=== PATIENT | male | born 1955 | race Caucasian/White ===

== ENCOUNTER 2024-02-12 09:27 | Emergency (ER) | payer OTHER ==
[~2024-02-12] VITALS: Ht 172.7 cm; Wt 91.0 kg
[2024-02-12 09:53] VITALS: O2SAT 99
[2024-02-12 10:48] LABS: CHLORIDE 118 mEq/L (98-107); POTASSIUM 3.3 mEq/L (3.5-5.1); SODIUM 144 mEq/L (136-145)
[2024-02-12 10:49] LABS: CALCIUM 6.6 mg/dL (8.7-10.4); CARBON DIOXIDE 21 mEq/L (21-32)
[2024-02-12 10:50] LABS: D-DIMER 3.08 mg/L FEU (<0.50); PROTHROMBIN TIME 11.3 sec (9.6-11.0)
[2024-02-12 10:54] LABS: CREATININE 0.5 mg/dL (0.6-1.3); GLUCOSE 76 mg/dL (70-105); UREA NITROGEN BLOOD 12 mg/dL (9-23)
[2024-02-12 10:55] LABS: TROPONIN I HIGH SENSITIVITY 8 ng/L (3.0-53)
[2024-02-12 10:57] LABS: BASOPHILS % 0.1 % (0.0-2.0); DIFFERENTIAL COMMENT 0; HEMOGLOBIN. 9.8 g/dL (14.0-18.0); LYMPHOCYTES % 9.1 % (20.0-50.0); MEAN CORPUSCULAR HEMOGLOBIN 26.3 pg (28.0-32.0); MEAN CORPUSCULAR HGB CONC 29.9 g/dL (31.0-37.0); MEAN CORPUSCULAR VOLUME 88.2 fL (80.0-94.0); MEAN PLATELET VOLUME 8.1 fl (7.4-10.4); MONOCYTES % 8.6 % (2.0-8.0); NEUTROPHILS % 82.2 % (40.0-76.0); PLATELET 230 x1000/uL (130-400); RED BLOOD CELL COUNT 3.73 mill/uL (4.7-6.1); RED CELL DISTRIBUTION WIDTH 18.1 % (11.6-14.6); WHITE BLOOD COUNT 19.4 x1000/uL (4.5-11.0)
[2024-02-12] MEDS ORDERED: VANCOMYCIN 1G PREMIX 200 ML IV ONE (11:30)
[2024-02-12] MEDS: PIPERACILLIN/TAZO 3.375G/50ML 50 ML IV ONE (12:49)
[2024-02-12] MEDS: SODIUM CHLORIDE 0.9% 1000ML BAG (SEPSIS BOLUS) IV ONE (12:50)
[2024-02-12 12:55] VITALS: TEMP 36.72516
[2024-02-12 13:19] LABS: LACTIC ACID 2.3 mmol/L (0.4-2.0)
[2024-02-12] MEDS: VANCOMYCIN 1GM PMX (XELLIA) 200 ML IV SCH (14:02)
[2024-02-12 14:46] LABS: CLARITY URINE CLEAR (CLEAR); COLOR URINE YELLOW (YELLOW); GLUCOSE URINE NEGATIVE (NEGATIVE); KETONES URINE NEGATIVE (NEGATIVE); PROTEIN URINE NEGATIVE (NEGATIVE); SPECIFIC GRAVITY URINE 1.015 (1.005-1.030)
[2024-02-12 14:47] LABS: LEUKOCYTE ESTERASE URINE NEGATIVE (NEGATIVE); NITRITE URINE NEGATIVE (NEGATIVE); OCCULT BLOOD URINE NEGATIVE (NEGATIVE); UROBILINOGEN URINE 0.2 E.U./dL (0.2-1.0)
[2024-02-12 16:07] VITALS: BP 126/67; PULSE 98; RESP 22; O2SAT 99
== END 2024-02-12 16:21 | disposition short-term general hospital (02) ==
LOC: ER 09:27 → EDBEDREQ 13:28 → EDBEDREQSVC 13:28 → CANBEDREQ 16:08 → ER 16:21
DX: A41.9 Sepsis, unspecified organism (principal); R65.20 Severe sepsis without septic shock; N45.3 Epididymo-orchitis
CPT/HCPCS: 99291; 74176; 96365; 93976; 96367; 80048; 81003; 83605; 83690; 85025; 85379; 85610; 87040; 87086; 84484; 36415; 84145; 71045; 76870; 93005; J3370; J2543; J7030